=== PATIENT | female | born 1975 | race Two or more races ===

== ENCOUNTER 2022-02-01 15:53 | Emergency (ER) | payer MEDICAID, OTHER ==
[~2022-02-01] VITALS: Ht 162.6 cm; Wt 75.6 kg
[2022-02-01 16:29] VITALS: BP 103/60
== END 2022-02-01 17:50 | disposition home or self-care (01) ==
LOC: ER 15:55
DX: S61.211A Laceration without foreign body of left index finger without damage to nail, initial encounter (principal); W26.0XXA Contact with knife, initial encounter; Y93.89 Activity, other specified; Y92.89 Other specified places as the place of occurrence of the external cause; Y99.8 Other external cause status